=== PATIENT | male | born 1930 | race Hispanic/Latino ===

== ENCOUNTER 2017-03-10 07:45 | Inpatient (IN) | payer MEDICARE ==
[2017-03-10 08:01] VITALS: BMI 17.2
[2017-03-10] MEDS ORDERED: Albuterol-Ipratrop 3 mg / 0.5 (3 ml) UD IH STA (08:11)
[2017-03-10] MEDS ORDERED: Albuterol-Ipratrop 3 mg / 0.5 (3 ml) UD ONE (08:35)
[2017-03-10] MEDS ORDERED: Sodium Chloride 0.9% 1,000 ML ONE (08:35)
[2017-03-10 08:40] LABS: BASO % 0.4 % (0.0-2.0); EOS % 0.3 % (0.0-4.0); HEMATOCRIT 21.7 % (35.0-51.0); LYMPH # 0.6 K/uL (1.0-4.3); LYMPH % 14.3 % (20.0-40.0); MEAN CORPUSCULAR HEMOGLOBIN 30.5 pg (27.0-31.0); MEAN CORPUSCULAR HGB CONC 32.5 g/dL (33.0-37.0); MEAN PLATELET VOLUME 9.3 fL (7.2-11.7); MONO # 0.5 K/uL (0.0-0.8); NRBC % 0.1 % (0.0-2.0); RED CELL DISTRIBUTION WIDTH 15.9 % (11.5-14.5)
[2017-03-10 08:41] LABS: MEAN CELL VOLUME 93.9 fL (80.0-94.0); WHITE BLOOD COUNT 4.3 K/uL (4.8-10.8)
[2017-03-10] MEDS: Sodium Chloride 0.9% 1,000 ML IV SCH ×2 (08:45→19:11)
[2017-03-10 08:47] LABS: CHLORIDE 101 mmol/L (98-107); POTASSIUM 3.7 mmol/L (3.6-5.2); SODIUM 140 mmol/L (132-148)
[2017-03-10 08:49] LABS: BILIRUBIN,TOTAL 0.4 mg/dL (0.2-1.3); GFR AFRICAN-AMERICAN > 60
[2017-03-10 08:50] LABS: ALB/GLOB RATIO 1.2 (1.0-2.1); ALKALINE PHOSPHATASE 73 U/L (38-126); ALT/SGPT 20 U/L (21-72); AST/SGOT 16 U/L (17-59); BLOOD UREA NITROGEN 22 mg/dL (9-20); CARBON DIOXIDE 27 mmol/L (22-30); GLUCOSE,RANDOM 103 mg/dL (75-110); TOTAL PROTEIN 6.1 g/dL (6.3-8.3)
[2017-03-10 08:51] LABS: CALCIUM 8.5 mg/dl (8.6-10.4)
[2017-03-10] MEDS ORDERED: Pantoprazole 80 MG in Sodium Chloride 0.9% 100 ML IVP SCH (09:00)
--- NOTE | 2017-03-10 09:04 | C.PDOC ---
History Of Present Illness 87 year old male with a Hx of COPD, CAD, and CABG who presents to the ER with a complaint of SOB and chest pain that began last night. Denies nausea, vomiting, or diaphoresis. Time Seen by Provider: 03/10/17 07:49 Chief Complaint (Nursing): Shortness Of Breath History Per: Patient History/Exam Limitations: no limitations Onset/Duration Of Symptoms: Hrs Current Symptoms Are (Timing): Still Present Initiating Event: Other (Not known) Current Respiratory Medications: See Home Med List Associated Symptoms: Chest Pain. denies: Fever, Chills, Sweating Recent travel outside of the [place]: No Past Medical History Reviewed: Historical Data, Nursing Documentation, Vital Signs Vital Signs: Last Vital Signs Temp 98.1 F 03/10/17 10:46 Pulse 97 H 03/10/17 12:05 Resp 13 03/10/17 12:05 BP 153/76 H 03/10/17 12:05 Pulse Ox 100 03/10/17 12:05 - Medical History PMH: Arthritis, Atrial Fibrillation, Back Problems, Benign Prostatic Hyperplasia , CHF (DENIES), COPD (DENIES), Gastritis (DENIES), HTN (DENIES) Surgical History: CABG - [facility] Procedures CONTR CEREBR ARTERIOGRAM (12/26/05) ESOPHAGOGASTRODUODENOSCOPY [EGD] W/CLOSED BIOPSY (04/15/15) INFLUENZA VACCINATION (05/01/14) VACCINATION NEC (05/01/14) Family History: States: Unknown Family Hx - Social History Hx Tobacco Use: Yes Hx Alcohol Use: No Hx Substance Use: No - Immunization History Hx Tetanus Toxoid Vaccination: No Hx Influenza Vaccination: Yes Hx Pneumococcal Vaccination: Yes Review Of Systems Constitutional: Negative for: Fever, Chills Cardiovascular: Positive for: Chest Pain Respiratory: Positive for: Shortness of Breath Gastrointestinal: Negative for: Nausea, Vomiting Neurological: Negative for: Weakness, Numbness Physical Exam - Physical Exam Appears: Non-toxic Skin: Normal Color, Warm, Dry Head: Atraumatic, Normacephalic Oral Mucosa: Moist Neck: Normal Chest: Symmetrical, No Tenderness Cardiovascular: Rhythm Regular, No Murmur Respiratory: Normal Breath Sounds, No Rales, No Rhonchi, No Wheezing Gastrointestinal/Abdominal: Soft, No Tenderness Rectal: Heme Positive, Melena Neurological/Psych: Oriented x3, Normal Speech, Normal Cognition ED Course And Treatment - Laboratory Results Result Diagrams: 03/10/17 08:36 03/10/17 08:36 Lab Interpretation: Abnormal Interpretation Of Abnormal: Hgb 7.1 ECG: Interpreted By Me ECG Rhythm: Sinus Rhythm, Nonspecific Changes ECG Interpretation: No Acute Changes Rate From EC O2 Sat by Pulse Oximetry: 100 Pulse Ox Interpretation: Normal - Radiology CXR: Interpreted by Me CXR Interpretation: Yes: No Acute Disease Progress Note: Blood work, EKG, CXR, and urinalysis ordered. Protonix, IV fluids , and nebulizer treatment administered. Treated with 1 unit PC Reassessment Condition: Unchanged - Physician Consult Information Physician Contacted: Tai Whitley Outcome Of Conversation: admit Medical Decision Making Medical Decision Making: Case discussed with Dr Meliza Whitley and agrees to admit requests Unit PC Disposition Discussed With .: Tai Whitley Doctor Will See Patient In The: Hospital - Disposition Disposition: HOSPITALIZED Disposition Time: 09:10 Condition: STABLE - POA Present On Arrival: None - Clinical Impression Clinical Impression: Dyspnea, GI bleeding, Anemia - Scribe Statement The provider has reviewed the documentation as recorded by the Scribroman Wharton All medical record entries made by the Scribe were at my direction and personally dictated by me. I have reviewed the chart and agree that the record accurately reflects my personal performance of the history, physical exam, medical decision making, and the department course for this patient. I have also personally directed, reviewed, and agree with the discharge instructions and disposition. Decision To Admit - Pt Status Changed To: Hospital Disposition Of: Inpatient - Admit Certification Admit to Inpatient:: After my assessment, the patient will require hospitalization for at least two midnights. This is because of the severity of symptoms shown, intensity of services needed, and/or the medical risk in this patient being treated as an outpatient. - InPatient: Physician Admission Certification: I certify that this patient requires 2 or more midnights of care for the following reason:: GI Bleeding. Anemia - . Bed Request Type: Telemetry Admitting Physician: Tai Whitley Patient Diagnosis: Dyspnea, GI bleeding, Anemia
[2017-03-10] MEDS: Pantoprazole 80 MG in Sodium Chloride 0.9% 100 ML IVPB SCH ×2 (09:33→19:46)
[2017-03-10] MEDS ORDERED: Sodium Chloride 0.9% 1,000 ML IV ONE (10:38)
--- NOTE | 2017-03-10 11:36 | CP.PCM.CON ---
History of Present Illness - History of Present Illness History of Present Illness: Covering Dr Lr CC: Anemia HPI: GI consult requested for this 87 year old man, who presented to the ER with fatigue and dyspnea on exertion. He was found to have normocytic anemia and so GI consult was requested. The patient is currently receiving PRBCs transfused. Patient admits to melena over the past 9 days. He does have a longstanding history of anemia and in fact is on oral Iron supplementation on a chronic basis. the patient is a poor historian, but my review of records reveals he had similar anemia in 2015 and underwent EGD twice in 2015, both times suggesting esophageal stricture and gastritis, with normal biopsies, and stool OB negative. The patient gets constipated at times but without definite change in bowel habits, and he does not recall ever having a Colonoscopy. he also feels occaional dysphagia to solids when " I eat too fast" and it resolves by drinking liquids. He takes daily Aspirin and anelgesics. Patient currently in ER waiting for telemetry unit bed. Review of Systems - Constitutional Constitutional: Fatigue, Weight Loss. absent: Fever - EENT Eyes: absent: Change in Vision Ears: absent: Decreased Hearing Nose/Mouth/Throat: Dysphagia. absent: Nasal Discharge - Cardiovascular Cardiovascular: Dyspnea on Exertion. absent: Chest Pain, Chest Pain at Rest - Respiratory Respiratory: Dyspnea on Exertion - Gastrointestinal Gastrointestinal: Constipation, Dysphagia, Melena. absent: Abdominal Pain, Change in Bowel Habits, Dyspepsia, Early Satiety - Genitourinary Genitourinary: Difficulty Urinating - Musculoskeletal Musculoskeletal: Arthralgias - Integumentary Integumentary: absent: Bleeding Lesions - Neurological Neurological: Abnormal Hearing, Memory Loss - Psychiatric Psychiatric: absent: Anxiety, Behavioral Changes - Endocrine Endocrine: Fatigue - Hematologic/Lymphatic Hematologic: absent: Easy Bleeding Past Patient History - Infectious Disease Hx of Infectious Diseases: None - Past Medical History & Family History Past Medical History?: Yes - Past Social History Smoking Status: Former Smoker Alcohol: None - CARDIAC Hx Atrial Fibrillation: Yes Hx Congestive Heart Failure: Yes (DENIES) Hx Hypertension: Yes (DENIES) - PULMONARY Hx Chronic Obstructive Pulmonary Disease (COPD): Yes (DENIES) - NEUROLOGICAL Hx Neurological Disorder: No - HEENT Hx HEENT Problems: No - RENAL Hx Chronic Kidney Disease: No - ENDOCRINE/METABOLIC Hx Endocrine Disorders: No - HEMATOLOGICAL/ONCOLOGICAL Hx Blood Disorders: No Hx Blood Transfusions: No - INTEGUMENTARY Hx Dermatological Problems: No - MUSCULOSKELETAL/RHEUMATOLOGICAL Hx Arthritis: Yes - GASTROINTESTINAL Hx Gastritis: Yes (DENIES) - GENITOURINARY/GYNECOLOGICAL Hx Genitourinary Disorders: Yes Hx Prostate Problems: Yes (BPH) - PSYCHIATRIC Hx Substance Use: No - SURGICAL HISTORY Hx Coronary Artery Bypass Graft: Yes - ANESTHESIA Hx Anesthesia: Yes Hx Anesthesia Reactions: No Hx Malignant Hyperthermia: No Meds Allergies/Adverse Reactions: Allergies Allergy/AdvReac Type Severity Reaction Status Date / Time No Known Allergies Allergy Verified 08/24/16 18:02 - Medications Medications: Current Medications Ferrous Sulfate (Feosol) 325 mg PO DAILY DARIELA Sodium Chloride (Sodium Chloride 0.9%) 1,000 mls @ 100 mls/hr IV .Q10H DARIELA Last Admin: 03/10/17 08:45 Dose: 100 mls/hr Pantoprazole Sodium 80 mg/ (Sodium Chloride) 100 mls @ 10 mls/hr IVPB .Q10H DARIELA PRN Reason: 8 MG/HR Last Admin: 03/10/17 09:33 Dose: 10 mls/hr Sodium Chloride (Sodium Chloride 0.9%) 1,000 mls @ 50 mls/hr IV .Q20H ONE Stop: 03/11/17 06:37 Last Admin: 03/10/17 11:03 Dose: 50 mls/hr Physical Exam - Constitutional Appears: Chronically Ill - Head Exam Head Exam: ATRAUMATIC, NORMOCEPHALIC - Eye Exam Eye Exam: absent: Scleral icterus - ENT Exam ENT Exam: Normal Exam - Neck Exam Neck exam: Positive for: Normal Inspection. Negative for: Thyromegaly - Respiratory Exam Respiratory Exam: Decreased Breath Sounds, NORMAL BREATHING PATTERN - Cardiovascular Exam Cardiovascular Exam: REGULAR RHYTHM, Systolic Murmur. absent: Tachycardia - GI/Abdominal Exam GI & Abdominal Exam: Soft. absent: Distended, Guarding, Mass, Organomegaly, Tenderness - Rectal Exam Rectal Exam: Deferred - Extremities Exam Extremities exam: Positive for: normal inspection - Back Exam Back exam: NORMAL INSPECTION - Neurological Exam Neurological exam: Alert, Oriented x3 - Psychiatric Exam Psychiatric exam: Normal Mood - Skin Skin Exam: Normal Color Results - Vital Signs Recent Vital Signs: Last Vital Signs Temp 98.1 F 03/10/17 10:46 Pulse 100 H 03/10/17 10:46 Resp 15 08/12/17 10:46 BP 120/66 03/10/17 10:46 Pulse Ox 100 03/10/17 10:46 - Labs Result Diagrams: 03/10/17 08:36 03/10/17 08:36 Assessment & Plan (1) Anemia Assessment and Plan: Acute on chronic normocytic anemia. Anemia of chronic disease with acute GI bleed component (melena) rec: Check stool OB Status: Acute (2) Dyspnea Assessment and Plan: Multifactorial: Pulm disease and anemia Status: Acute (3) GI bleeding Assessment and Plan: Melena. Likely upper GI source. Chronic aspirin use, and ?h/ esophageal stricture. Rec: PPI. EGD after stabilixation. Monitor Hgb. Will stop oral Iron as this interferes with endoscopic visualization Status: Acute - Date & Time Date: 03/10/17 Time: 11:43
[2017-03-10 12:06] LABS: RBC URINE 1 /hpf (0-3); URINE BILIRUBIN NEGATIVE (NEGATIVE); URINE BLOOD NEGATIVE (NEGATIVE); URINE COLOR Yellow (YELLOW); URINE GLUCOSE (UA) NORMAL (Normal); URINE KETONE TRACE mg/dL (NEGATIVE); URINE LEUKOCYTE ESTERASE NEG Leu/uL (Negative); URINE PROTEIN NEGATIVE (NEGATIVE); URINE UROBILINOGEN NORMAL mg/dL (0.2-1.0); WBC URINE 1 /hpf (0-5)
--- NOTE | 2017-03-10 14:08 | RAD ---
HISTORY: SOB COMPARISON: Comparison is made to 09/04/2016 TECHNIQUE: Chest PA and lateral FINDINGS: LUNGS: Hyperinflation of the lungs is again noted suggestive of COPD. No evidence of new infiltration O consolidation in the lungs. Pleural thickening seen at the lung apices. PLEURA: No significant pleural effusion identified. No pneumothorax apparent. CARDIOVASCULAR: Normal. OSSEOUS STRUCTURES: No significant abnormalities. VISUALIZED UPPER ABDOMEN: Normal. OTHER FINDINGS: None. IMPRESSION: Moderate emphysematous changes. No evidence of new infiltrate or consolidation in the lungs.
[2017-03-11] MEDS ORDERED: Albuterol-Ipratrop 3 mg / 0.5 (3 ml) UD INH STA (04:45)
[2017-03-11] MEDS: Pantoprazole 80 MG in Sodium Chloride 0.9% 100 ML IVPB SCH ×2 (07:15→16:58)
[2017-03-11] MEDS: Sodium Chloride 0.9% 1,000 ML IV SCH ×2 (07:15→19:46)
--- NOTE | 2017-03-11 08:51 | CP.PCM.PN ---
Subjective - Date & Time of Evaluation Date of Evaluation: 03/11/17 Time of Evaluation: 08:48 - Subjective Subjective: Patient complains of shortness of breath, is awaiting a nebulizer treatment. He denies having nausea, vomiting, abdominal pain. He has not had a bowel movement so far today. Objective - Vital Signs/Intake and Output Vital Signs (last 24 hours): Temp Pulse Resp BP Pulse Ox 99.1 F 93 H 20 157/81 H 97 03/10/17 23:05 03/10/17 23:05 03/10/17 23:05 03/10/17 23:05 03/10/17 23:05 Intake and Output: 03/11/17 03/11/17 06:59 18:59 Output Total 151 Balance -151 - Medications Medications: Current Medications Sodium Chloride (Sodium Chloride 0.9%) 1,000 mls @ 100 mls/hr IV .Q10H DARIELA Last Admin: 03/11/17 07:15 Dose: 100 mls/hr Pantoprazole Sodium 80 mg/ (Sodium Chloride) 100 mls @ 10 mls/hr IVPB .Q10H DARIELA PRN Reason: 8 MG/HR Last Admin: 03/11/17 07:15 Dose: 10 mls/hr - Constitutional Appears: In Acute Distress - Head Exam Head Exam: ATRAUMATIC, NORMOCEPHALIC - Eye Exam Eye Exam: EOMI, PERRL - Neck Exam Neck Exam: absent: Lymphadenopathy, Thyromegaly - Respiratory Exam Respiratory Exam: Prolonged Expiratory Phase, NORMAL BREATHING PATTERN. absent : Rales, Rhonchi, Wheezes - Cardiovascular Exam Cardiovascular Exam: REGULAR RHYTHM, +S1. absent: Gallop, Rubs, Murmur - GI/Abdominal Exam GI & Abdominal Exam: Soft, Normal Bowel Sounds. absent: Tenderness, Mass, Organomegaly - Rectal Exam Rectal Exam: Deferred - Extremities Exam Extremities Exam: absent: Calf Tenderness, Pedal Edema Assessment and Plan (1) Melena Assessment & Plan: Patient was admitted with melena and anemia, HGB 7.1. The repeat CBC from this morning is still pending. Will schedule EGD for tomorrow, provided the respiratory status is stable. Status: Acute
[2017-03-11] MEDS: Albuterol-Ipratrop 3 mg / 0.5 (3 ml) UD INH SCH ×2 (11:45→19:57)
[2017-03-11 22:44] LABS: BASO % 0.1 % (0.0-2.0); HEMATOCRIT 27.2 % (35.0-51.0); LYMPH # 1.1 K/uL (1.0-4.3); LYMPH % 11.4 % (20.0-40.0); MEAN CELL VOLUME 91.3 fL (80.0-94.0); MEAN CORPUSCULAR HEMOGLOBIN 29.4 pg (27.0-31.0); MEAN CORPUSCULAR HGB CONC 32.2 g/dL (33.0-37.0); MEAN PLATELET VOLUME 9.6 fL (7.2-11.7); MONO # 1.7 K/uL (0.0-0.8); MONO % 17.5 % (0.0-10.0); NRBC % 0.1 % (0.0-2.0); RED CELL DISTRIBUTION WIDTH 17.5 % (11.5-14.5); WHITE BLOOD COUNT 9.9 K/uL (4.8-10.8)
[2017-03-12] MEDS: Sodium Chloride 0.9% 1,000 ML IV SCH ×3 (00:30→10:40)
[2017-03-12] MEDS: Pantoprazole 80 MG in Sodium Chloride 0.9% 100 ML IVPB SCH ×3 (01:30→21:24)
[2017-03-12] MEDS: Albuterol-Ipratrop 3 mg / 0.5 (3 ml) UD INH SCH ×3 (07:34→19:47)
[2017-03-12 08:10] LABS: INR 1.4
--- NOTE | 2017-03-12 08:10 | HP ---
HISTORY OF PRESENT ILLNESS: This is an 87-year-old gentleman who was brought in with a history of shortness of breath. The patient has a history of COPD, CAD and CABG. He was complaining of shortness of breath and chest pain, came to the emergency room and was also found to be anemic with hemoglobin of 7.1 gram. Stool for occult blood was positive. He has been noticing dark colored stool for about 2 weeks. The patient has history of known CAD, previous CABG more than 20 years ago, has been admitted in the past for atypical chest pain. He has been advised to stay on baby aspirin, simvastatin and small dose of MATTHEW inhibitors, but he has refused to take any medication, has been poor compliance. He did not want to take the medicine. Family is well aware of it. He also has history of severe back problems and multiple joint pains, in the care of pain management and has been on Percocet and another multiple medications for the pain. PERSONAL HISTORY: Smoke cigars. ALLERGIES: DENIED. FAMILY HISTORY: His one son has history of coronary artery disease in his 50s, cardiac CABG and has an ICD. PAST MEDICAL HISTORY: History of benign prostatic hypertrophy, gastritis and CABG. REVIEW OF SYSTEMS: Generalized weakness is noted. No fever, no chills, no visual disturbances, no cough, no hemoptysis. Chest pain is noted, which occurs at anytime. The patient has mild shortness of breath, no wheezing. Denies any hematemesis, but has noticed dark colored stool, no abdominal pain, multiple joint pains. No TIAs. No CVAs. Admitted in the past for syncopal episode. Also, he has carotid disease. Frequency of urination is noted. No history of depression. PHYSICAL EXAMINATION: GENERAL: Shows elderly white male, who is conscious, alert and well oriented, in no distress. VITAL SIGNS: Height 5 feet and 10 inches, weighs 120 pounds. His blood pressure is 140/80, heart rate of 106, respiratory rate of 20, temperature of 98.1 and O2 saturation is 99% on 2 liters O2 cannula. HEENT: Head is normocephalic. Eyes, no pallor, no icterus. Mouth, absence of teeth. NECK: Supple. No carotid bruits. LUNGS: Shows few basal rales on the right side. HEART: PMI is not localized. S1 and S2 is distant and tachycardic. No definite gallops or murmurs can be appreciated. Healed surgical scar of previous surgery is noted in the midsternal line. ABDOMEN: Soft and nontender. EXTREMITIES: No cyanosis, clubbing or edema. Distal pulses are intact. No focal sign. LABORATORY DATA: Hemoglobin was 7.1. Two sets of troponins were mildly elevated to 0.14 and 0.18. LFTs were normal. His potassium is 3.7, BUN is 22 and creatinine is 0.9. ASSESSMENT: This is an 87-year-old gentleman with history of severe anemia probably related to the pain medication and gastritis. He has been documented to have colonoscopy as well as upper endoscopy in the past, but he has refused. PLAN: At this point to GI consult with Dr. Lr, transfusion. No aspirin or pain medications. Protonix. stabilization and once the cardiac evaluation is completed and LV function is stable, will need upper and lower scopy. Tai Whitley MD
[2017-03-12 08:11] LABS: FUNCTIONING PLTS 82 K/uL; PLT BASE COUNT 148 K/uL; PLT(ADP) 66 K/uL
[2017-03-12 08:18] LABS: CHLORIDE 103 mmol/L (98-107); POTASSIUM 3.7 mmol/L (3.6-5.2); SODIUM 137 mmol/L (132-148)
[2017-03-12 08:21] LABS: ALB/GLOB RATIO 1.1 (1.0-2.1); ALKALINE PHOSPHATASE 69 U/L (38-126); ALT/SGPT 25 U/L (21-72); AST/SGOT 28 U/L (17-59); BILIRUBIN,TOTAL 1.1 mg/dL (0.2-1.3); BLOOD UREA NITROGEN 12 mg/dL (9-20); CALCIUM 8.2 mg/dl (8.6-10.4); CARBON DIOXIDE 23 mmol/L (22-30); GFR AFRICAN-AMERICAN > 60; GLUCOSE,RANDOM 99 mg/dL (75-110); TOTAL PROTEIN 5.7 g/dL (6.3-8.3)
[2017-03-12 08:22] LABS: BASO % 0.2 % (0.0-2.0); HEMATOCRIT 27.1 % (35.0-51.0); LYMPH # 0.8 K/uL (1.0-4.3); LYMPH % 8.3 % (20.0-40.0); MEAN CELL VOLUME 90.8 fL (80.0-94.0); MEAN CORPUSCULAR HEMOGLOBIN 29.5 pg (27.0-31.0); MEAN CORPUSCULAR HGB CONC 32.5 g/dL (33.0-37.0); MEAN PLATELET VOLUME 9.9 fL (7.2-11.7); MONO # 1.6 K/uL (0.0-0.8); MONO % 16.3 % (0.0-10.0); PLATELET COUNT 146 K/uL (130-400); RED CELL DISTRIBUTION WIDTH 17.7 % (11.5-14.5)
[2017-03-12 09:14] LABS: TOTAL CELLS COUNTED 100
[2017-03-12 09:20] LABS: MYELOCYTE 1 % (0-0); NEUTROPHIL 82 % (50-75)
--- NOTE | 2017-03-12 10:38 | CP.PCM.PN ---
Subjective - Date & Time of Evaluation Date of Evaluation: 03/12/17 Time of Evaluation: 10:35 - Subjective Subjective: Patient states that his breathing is improving. He denies having cough, chest pain, nausea, vomiting. He has mild lower abdominal discomfort which he describes as a steady toothache. He had two soft bowel movements overnight without joy blood. Objective - Vital Signs/Intake and Output Vital Signs (last 24 hours): Temp Pulse Resp BP Pulse Ox 98.4 F 119 H 20 144/84 100 03/12/17 08:00 03/12/17 08:00 03/12/17 08:00 03/12/17 08:00 03/12/17 08:00 Intake and Output: 03/12/17 03/12/17 06:59 18:59 Intake Total 2260 Output Total 650 Balance 1610 - Medications Medications: Current Medications Albuterol/Ipratropium (Duoneb 3 Mg/0.5 Mg (3 Ml) Ud) 3 ml INH RQ6 DARIELA Last Admin: 03/12/17 07:34 Dose: 3 ml Sodium Chloride (Sodium Chloride 0.9%) 1,000 mls @ 100 mls/hr IV .Q10H DARIELA Last Admin: 03/12/17 06:41 Dose: 100 mls/hr Pantoprazole Sodium 80 mg/ (Sodium Chloride) 100 mls @ 10 mls/hr IVPB .Q10H DARIELA PRN Reason: 8 MG/HR Last Admin: 03/12/17 01:30 Dose: Not Given Losartan Potassium (Cozaar) 25 mg PO DAILY DARIELA Last Admin: 03/12/17 09:36 Dose: 25 mg - Labs Labs: 03/12/17 07:56 03/12/17 07:56 PT 16.0 SECONDS (9.7-12.2) H 03/12/17 07:56 INR 1.4 03/12/17 07:56 - Constitutional Appears: No Acute Distress - Head Exam Head Exam: ATRAUMATIC, NORMOCEPHALIC - Eye Exam Eye Exam: EOMI, PERRL - Neck Exam Neck Exam: absent: Lymphadenopathy, Thyromegaly - Respiratory Exam Respiratory Exam: NORMAL BREATHING PATTERN. absent: Rales, Rhonchi, Wheezes - GI/Abdominal Exam GI & Abdominal Exam: Soft, Normal Bowel Sounds. absent: Tenderness, Mass, Organomegaly - Rectal Exam Rectal Exam: Deferred - Extremities Exam Extremities Exam: absent: Calf Tenderness, Pedal Edema Assessment and Plan (1) Melena Assessment & Plan: Hemoglobin remains stable at 8.8. He denies having rectal bleeding. With anemia and positive test for fecal occult blood, he should undergo colonoscopy and EGD. However, the TN1 values are slightly elevated at 0.145, repeat 0.181, and the BNP is markedly elevated at 9480. We will schedule the endoscopic procedures when he is stable and cleared by cardiology. Status: Acute
--- NOTE | 2017-03-12 14:29 | CP.PCM.PN ---
Subjective - Date & Time of Evaluation Date of Evaluation: 03/12/17 Time of Evaluation: 14:24 - Subjective Subjective: weak.labs noted. Objective - Vital Signs/Intake and Output Vital Signs (last 24 hours): Temp Pulse Resp BP Pulse Ox 98.4 F 104 H 20 144/84 100 03/12/17 08:00 03/12/17 13:28 03/12/17 08:00 03/12/17 08:00 03/12/17 08:00 Intake and Output: 03/12/17 03/12/17 06:59 18:59 Intake Total 2260 Output Total 650 Balance 1610 - Medications Medications: Current Medications Albuterol/Ipratropium (Duoneb 3 Mg/0.5 Mg (3 Ml) Ud) 3 ml INH RQ6 DARIELA Last Admin: 03/12/17 12:59 Dose: 3 ml Pantoprazole Sodium 80 mg/ (Sodium Chloride) 100 mls @ 10 mls/hr IVPB .Q10H DARIELA PRN Reason: 8 MG/HR Last Admin: 03/12/17 10:40 Dose: 10 mls/hr Losartan Potassium (Cozaar) 25 mg PO DAILY DARIELA Last Admin: 03/12/17 09:36 Dose: 25 mg - Labs Labs: 03/12/17 07:56 03/12/17 07:56 PT 16.0 SECONDS (9.7-12.2) H 03/12/17 07:56 INR 1.4 03/12/17 07:56 - Constitutional Appears: Chronically Ill - Head Exam Head Exam: NORMAL INSPECTION - Eye Exam Eye Exam: Normal appearance - Respiratory Exam Respiratory Exam: Rales - Cardiovascular Exam Cardiovascular Exam: Tachycardia, Murmur - GI/Abdominal Exam GI & Abdominal Exam: Soft - Extremities Exam Extremities Exam: absent: Pedal Edema - Neurological Exam Neurological Exam: Alert, Oriented x3 Assessment and Plan - Assessment and Plan (Free Text) Assessment: labs noted.ekg had sinus tach.2 sets of troponins are elevated. non st elevatation mi. echo reviewed by me. diss with son,daughter in law.pt has living will & wants dnr.
--- NOTE | 2017-03-12 22:16 | CARD ---
APPROVED REPORT EXAM: Two-dimensional and M-mode echocardiogram with Doppler and color Doppler. Other Information Quality : GoodRhythm : NSR INDICATION Chest Pain Syncope COPD RISK FACTORS Hypertension 2D DIMENSIONS IVSd0.9 (0.7-1.1cm)Aortic Root (2D)3.2 (2.0-3.7cm) LVDd5.8 (3.9-5.9cm)LVOT Diameter2.1 (1.8-2.4cm) PWd0.8 (0.7-1.1cm) M-Mode DIMENSIONS Left Atrium (MM)2.95 (2.5-4.0cm)Aortic Root3.54 (2.2-3.7cm) Aortic Cusp Exc.0.70 (1.5-2.0cm) Aortic Valve AoV Peak Tqkmbuzg940.3cm/sAoV VTI44.8cmAO Peak GR.28mmHg LVOT Peak Mgjuwpwz72.9cm/sLVOT VTI13.48cmAO Mean GR.16mmHg QUANG (VMAX)0.69up6JRX (VTI)1.72hw6OQ P 1/2 Yahl035zn Mitral Valve MV E Bgpvtmnq886.2cm/sMV A Uobnsslt95.1cm/sE/A ratio1.2 TDI E/Lateral E'0.0E/Medial E'0.0 Tricuspid Valve TR Peak Effhbbvv080ix/sTR Peak Gr.66tqEkDAUK38dpEf LEFT VENTRICLE The Left Ventricle is mildly dilated. There is normal left ventricular wall thickness. 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 There is global hypokinesis of the left ventricle. The left ventricular diastolic function is normal. No left ventricle thrombus noted on this study. RIGHT VENTRICLE The right ventricle is normal size. The right ventricular systolic function is normal. ATRIA The left atrium is moderately dilated on 2D. The right atrium is mildly dilated. AORTIC VALVE The aortic valve is moderately calcified. No aortic regurgitation is present. There is moderate to severe valvular aortic stenosis. Calculated aortic valve area is 0.8 cm2 with maximum pressure gradient of 28 mmHg and mean pressure gradient of 16 mmHg. Cannot exclude aortic valvular vegetation. MITRAL VALVE The mitral valve is moderately thickened. Mitral annular calcification is moderate. There is no evidence of mitral valve prolapse. There is no mitral valve stenosis. Mitral regurgitation is moderate to severe. TRICUSPID VALVE The tricuspid valve is normal in structure. There is moderate to severe tricuspid regurgitation. Right ventricular systolic pressure is estimated at 50-60 mmHg. There is moderate pulmonary hypertension. There is no tricuspid valve prolapse or vegetation. There is no tricuspid valve stenosis. PULMONIC VALVE The pulmonic valve is not well visualized. There is mild to moderate pulmonic valvular regurgitation. GREAT VESSELS The aortic root is normal in size. The IVC collapses <50% with inspiration. PERICARDIAL EFFUSION There is no pericardial effusion. There is no pleural effusion. <Conclusion> The Left Ventricle is mildly dilated. 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 There is global hypokinesis of the left ventricle. The left ventricular diastolic function is normal. The right ventricle is normal size. The right ventricular systolic function is normal. The left atrium is moderately dilated. The right atrium is mildly dilated. Mitral regurgitation is moderate to severe. There is moderate to severe tricuspid regurgitation. There is moderate pulmonary hypertension. There is mild to moderate pulmonic valvular regurgitation.
[2017-03-13] MEDS: Albuterol-Ipratrop 3 mg / 0.5 (3 ml) UD INH SCH ×4 (02:23→19:00)
[2017-03-13 07:08] LABS: BASO % 0.4 % (0.0-2.0); EOS % 0.2 % (0.0-4.0); HEMATOCRIT 27.2 % (35.0-51.0); LYMPH % 11.8 % (20.0-40.0); MEAN CELL VOLUME 91.4 fL (80.0-94.0); MEAN CORPUSCULAR HEMOGLOBIN 29.6 pg (27.0-31.0); MEAN CORPUSCULAR HGB CONC 32.4 g/dL (33.0-37.0); MEAN PLATELET VOLUME 9.8 fL (7.2-11.7); MONO # 1.3 K/uL (0.0-0.8); MONO % 15.6 % (0.0-10.0); RED CELL DISTRIBUTION WIDTH 17.7 % (11.5-14.5); WHITE BLOOD COUNT 8.4 K/uL (4.8-10.8)
[2017-03-13 07:29] LABS: CHLORIDE 100 mmol/L (98-107); POTASSIUM 3.7 mmol/L (3.6-5.2); SODIUM 138 mmol/L (132-148)
[2017-03-13 07:32] LABS: ALB/GLOB RATIO 1.1 (1.0-2.1); ALKALINE PHOSPHATASE 62 U/L (38-126); ALT/SGPT 26 U/L (21-72); BLOOD UREA NITROGEN 18 mg/dL (9-20); GLUCOSE,RANDOM 104 mg/dL (75-110); TOTAL PROTEIN 5.5 g/dL (6.3-8.3)
[2017-03-13 07:33] LABS: CALCIUM 8.2 mg/dl (8.6-10.4)
[2017-03-13 07:43] LABS: AST/SGOT 24 U/L (17-59); BILIRUBIN,TOTAL 0.9 mg/dL (0.2-1.3); CARBON DIOXIDE 25 mmol/L (22-30); GFR AFRICAN-AMERICAN > 60
[2017-03-13] MEDS: Pantoprazole 80 MG in Sodium Chloride 0.9% 100 ML IVPB SCH ×2 (08:00→21:36)
--- NOTE | 2017-03-13 13:30 | CP.PCM.PN ---
Subjective - Date & Time of Evaluation Date of Evaluation: 03/13/17 Time of Evaluation: 13:29 - Subjective Subjective: better.less sob. Objective - Vital Signs/Intake and Output Vital Signs (last 24 hours): Temp Pulse Resp BP Pulse Ox 99.0 F 99 H 20 111/72 100 03/13/17 08:49 03/13/17 08:49 03/13/17 08:49 03/13/17 08:49 03/13/17 08:49 Intake and Output: 03/13/17 03/13/17 06:59 18:59 Intake Total 320 Output Total 500 Balance -180 - Medications Medications: Current Medications Albuterol/Ipratropium (Duoneb 3 Mg/0.5 Mg (3 Ml) Ud) 3 ml INH RQ6 [facility] Last Admin: 03/13/17 13:21 Dose: 3 ml Ferrous Sulfate (Feosol) 325 mg PO DAILY [facility] Furosemide (Lasix) 20 mg PO DAILY [facility] Pantoprazole Sodium 80 mg/ (Sodium Chloride) 100 mls @ 10 mls/hr IVPB .Q10H [facility] PRN Reason: 8 MG/HR Last Admin: 03/12/17 21:24 Dose: 10 mls/hr Losartan Potassium (Cozaar) 25 mg PO DAILY [facility] Last Admin: 03/12/17 09:36 Dose: 25 mg Tramadol HCl (Ultram) 50 mg PO TID PRN PRN Reason: Pain, moderate (4-7) Last Admin: 03/12/17 21:39 Dose: 50 mg - Labs Labs: 03/13/17 07:00 03/13/17 07:00 PT 16.0 SECONDS (9.7-12.2) H 03/12/17 07:56 INR 1.4 03/12/17 07:56 - Constitutional Appears: No Acute Distress - Eye Exam Eye Exam: Normal appearance - Respiratory Exam Respiratory Exam: Clear to Ausculation Bilateral - Cardiovascular Exam Cardiovascular Exam: REGULAR RHYTHM - GI/Abdominal Exam GI & Abdominal Exam: Soft - Extremities Exam Extremities Exam: absent: Pedal Edema - Neurological Exam Neurological Exam: Alert, Oriented x3 Assessment and Plan - Assessment and Plan (Free Text) Assessment: chf,better.hb 8.5,stable. will start po lasix & feosol. refuses all w/u & further stay.
[2017-03-14] MEDS: Albuterol-Ipratrop 3 mg / 0.5 (3 ml) UD INH SCH ×4 (01:47→19:35)
[2017-03-14] MEDS: Pantoprazole 80 MG in Sodium Chloride 0.9% 100 ML IVPB SCH ×4 (03:30→16:00)
[2017-03-14 07:36] LABS: BASO % 0.3 % (0.0-2.0); EOS # 0.1 K/uL (0.0-0.7); EOS % 1.1 % (0.0-4.0); HEMATOCRIT 28.7 % (35.0-51.0); LYMPH % 14.8 % (20.0-40.0); MEAN CELL VOLUME 90.6 fL (80.0-94.0); MEAN CORPUSCULAR HEMOGLOBIN 29.1 pg (27.0-31.0); MEAN CORPUSCULAR HGB CONC 32.1 g/dL (33.0-37.0); MEAN PLATELET VOLUME 10.2 fL (7.2-11.7); MONO # 1.1 K/uL (0.0-0.8); MONO % 15.6 % (0.0-10.0); RED CELL DISTRIBUTION WIDTH 16.9 % (11.5-14.5); WHITE BLOOD COUNT 7.1 K/uL (4.8-10.8)
[2017-03-14 07:45] LABS: CHLORIDE 99 mmol/L (98-107); SODIUM 136 mmol/L (132-148)
[2017-03-14 07:48] LABS: ALKALINE PHOSPHATASE 65 U/L (38-126); ALT/SGPT 31 U/L (21-72); AST/SGOT 31 U/L (17-59); BILIRUBIN,TOTAL 0.9 mg/dL (0.2-1.3); BLOOD UREA NITROGEN 16 mg/dL (9-20); CARBON DIOXIDE 28 mmol/L (22-30); GFR AFRICAN-AMERICAN > 60; GLUCOSE,RANDOM 107 mg/dL (75-110); TOTAL PROTEIN 5.7 g/dL (6.3-8.3)
[2017-03-14 07:49] LABS: CALCIUM 8.1 mg/dl (8.6-10.4)
--- NOTE | 2017-03-14 13:44 | CP.PCM.PN ---
Subjective - Date & Time of Evaluation Date of Evaluation: 03/14/17 Time of Evaluation: 13:43 - Subjective Subjective: less sob Objective - Vital Signs/Intake and Output Vital Signs (last 24 hours): Temp Pulse Resp BP Pulse Ox 98.4 F 91 H 20 105/59 L 97 03/14/17 09:10 03/14/17 10:53 03/14/17 09:10 03/14/17 10:57 03/14/17 09:10 Intake and Output: 03/14/17 03/14/17 06:59 18:59 Intake Total 580 Output Total 1000 Balance -420 - Medications Medications: Current Medications Albuterol/Ipratropium (Duoneb 3 Mg/0.5 Mg (3 Ml) Ud) 3 ml INH RQ6 [facility] Last Admin: 03/14/17 13:07 Dose: 3 ml Ferrous Sulfate (Feosol) 325 mg PO DAILY [facility] Last Admin: 03/14/17 10:57 Dose: 325 mg Furosemide (Lasix) 20 mg PO DAILY [facility] Last Admin: 03/14/17 10:57 Dose: 20 mg Pantoprazole Sodium 80 mg/ (Sodium Chloride) 100 mls @ 10 mls/hr IVPB .Q10H [facility] PRN Reason: 8 MG/HR Last Admin: 03/14/17 09:53 Dose: 10 mls/hr Losartan Potassium (Cozaar) 25 mg PO DAILY [facility] Last Admin: 03/14/17 10:57 Dose: 25 mg Tramadol HCl (Ultram) 50 mg PO TID PRN PRN Reason: Pain, moderate (4-7) Last Admin: 03/12/17 21:39 Dose: 50 mg - Labs Labs: 03/14/17 07:21 03/14/17 07:21 PT 16.0 SECONDS (9.7-12.2) H 03/12/17 07:56 INR 1.4 03/12/17 07:56 - Constitutional Appears: Chronically Ill - ENT Exam ENT Exam: Mucous Membranes Moist - Respiratory Exam Respiratory Exam: Clear to Ausculation Bilateral - Cardiovascular Exam Cardiovascular Exam: REGULAR RHYTHM, Murmur - GI/Abdominal Exam GI & Abdominal Exam: Soft - Extremities Exam Extremities Exam: absent: Pedal Edema - Neurological Exam Neurological Exam: Alert, Oriented x3 Assessment and Plan - Assessment and Plan (Free Text) Assessment: chf,nstemi,gi blled d/c to rehab in am
--- NOTE | 2017-03-14 16:13 | CP.PCM.PN ---
Subjective - Date & Time of Evaluation Date of Evaluation: 03/14/17 Time of Evaluation: 16:12 - Subjective Subjective: Patient denies having nausea, vomiting, abdominal pain. He has not had a bowel movement today. Objective - Vital Signs/Intake and Output Vital Signs (last 24 hours): Temp Pulse Resp BP Pulse Ox 97.9 F 69 20 112/61 100 03/14/17 15:41 03/14/17 15:41 03/14/17 15:41 03/14/17 15:41 03/14/17 15:41 Intake and Output: 03/14/17 03/14/17 06:59 18:59 Intake Total 580 1200 Output Total 1000 900 Balance -420 300 - Medications Medications: Current Medications Albuterol/Ipratropium (Duoneb 3 Mg/0.5 Mg (3 Ml) Ud) 3 ml INH RQ6 [facility] Last Admin: 03/14/17 13:07 Dose: 3 ml Ferrous Sulfate (Feosol) 325 mg PO DAILY [facility] Last Admin: 03/14/17 10:57 Dose: 325 mg Furosemide (Lasix) 20 mg PO DAILY [facility] Last Admin: 03/14/17 10:57 Dose: 20 mg Pantoprazole Sodium 80 mg/ (Sodium Chloride) 100 mls @ 10 mls/hr IVPB .Q10H [facility] PRN Reason: 8 MG/HR Last Admin: 03/14/17 13:30 Dose: Not Given Losartan Potassium (Cozaar) 25 mg PO DAILY [facility] Last Admin: 03/14/17 10:57 Dose: 25 mg Tramadol HCl (Ultram) 50 mg PO TID PRN PRN Reason: Pain, moderate (4-7) Last Admin: 03/14/17 14:30 Dose: 50 mg - Labs Labs: 03/14/17 07:21 03/14/17 07:21 PT 16.0 SECONDS (9.7-12.2) H 03/12/17 07:56 INR 1.4 03/12/17 07:56 - Constitutional Appears: No Acute Distress - Head Exam Head Exam: ATRAUMATIC, NORMOCEPHALIC - Eye Exam Eye Exam: EOMI, PERRL - Neck Exam Neck Exam: absent: Lymphadenopathy, Thyromegaly - Respiratory Exam Respiratory Exam: NORMAL BREATHING PATTERN. absent: Rales, Rhonchi, Wheezes - Cardiovascular Exam Cardiovascular Exam: REGULAR RHYTHM, +S1, +S2. absent: Gallop, Rubs, Murmur - GI/Abdominal Exam GI & Abdominal Exam: Soft, Normal Bowel Sounds. absent: Tenderness, Mass, Organomegaly - Rectal Exam Rectal Exam: Deferred - Extremities Exam Extremities Exam: absent: Calf Tenderness, Pedal Edema Assessment and Plan (1) Melena Assessment & Plan: Patient has a history of melena, anemia, and positive fecal occult blood. The HGB has been stable for the past three days, and, at 9.2, is slightly higher [place]. [place] [address]. Plan is still to pursue an endoscopic work up, including EGD and colonoscopy, when he is clinically stable and cleared by cardiology. This can easily be arranged as an outpatient. Status: Acute
[2017-03-15] MEDS: Pantoprazole 80 MG in Sodium Chloride 0.9% 100 ML IVPB SCH ×2 (00:46→11:28)
[2017-03-15] MEDS: Albuterol-Ipratrop 3 mg / 0.5 (3 ml) UD INH SCH ×4 (01:40→19:39)
[2017-03-15 08:21] LABS: BASO % 0.4 % (0.0-2.0); EOS # 0.1 K/uL (0.0-0.7); EOS % 1.7 % (0.0-4.0); HEMATOCRIT 27.4 % (35.0-51.0); MEAN CELL VOLUME 90.8 fL (80.0-94.0); MEAN CORPUSCULAR HEMOGLOBIN 28.7 pg (27.0-31.0); MEAN CORPUSCULAR HGB CONC 31.6 g/dL (33.0-37.0); RED CELL DISTRIBUTION WIDTH 16.7 % (11.5-14.5); WHITE BLOOD COUNT 6.1 K/uL (4.8-10.8)
[2017-03-15 08:54] LABS: CHLORIDE 97 mmol/L (98-107); POTASSIUM 3.1 mmol/L (3.6-5.2); SODIUM 135 mmol/L (132-148)
[2017-03-15 08:56] LABS: BILIRUBIN,TOTAL 0.7 mg/dL (0.2-1.3); GFR AFRICAN-AMERICAN > 60
[2017-03-15 08:57] LABS: ALB/GLOB RATIO 0.9 (1.0-2.1); ALKALINE PHOSPHATASE 60 U/L (38-126); ALT/SGPT 29 U/L (21-72); AST/SGOT 27 U/L (17-59); BLOOD UREA NITROGEN 17 mg/dL (9-20); CARBON DIOXIDE 28 mmol/L (22-30); GLUCOSE,RANDOM 98 mg/dL (75-110); TOTAL PROTEIN 5.5 g/dL (6.3-8.3)
[2017-03-15 08:58] LABS: CALCIUM 7.9 mg/dl (8.6-10.4)
[2017-03-15] MEDS: Potassium Chloride 20 mEq ER Tab PO SCH (12:08)
--- NOTE | 2017-03-15 12:37 | CP.PCM.PN ---
Subjective - Date & Time of Evaluation Date of Evaluation: 03/15/17 Time of Evaluation: 12:35 - Subjective Subjective: weak.frequent pvcs.k is 3.1 Objective - Vital Signs/Intake and Output Vital Signs (last 24 hours): Temp Pulse Resp BP Pulse Ox 98.4 F 82 18 98/52 L 100 03/15/17 08:23 03/15/17 09:40 03/15/17 08:23 03/15/17 09:40 03/15/17 08:23 Intake and Output: 03/15/17 03/15/17 06:59 18:59 Intake Total 320 Output Total 400 Balance -80 - Medications Medications: Current Medications Albuterol/Ipratropium (Duoneb 3 Mg/0.5 Mg (3 Ml) Ud) 3 ml INH RQ6 [facility] Last Admin: 03/15/17 07:30 Dose: 3 ml Ferrous Sulfate (Feosol) 325 mg PO DAILY [facility] Last Admin: 03/15/17 09:41 Dose: 325 mg Furosemide (Lasix) 20 mg PO DAILY [facility] Last Admin: 03/14/17 10:57 Dose: 20 mg Losartan Potassium (Cozaar) 25 mg PO DAILY [facility] Last Admin: 03/15/17 12:06 Dose: 25 mg Metoprolol Succinate (Toprol Xl) 25 mg PO DAILY [facility] Pantoprazole Sodium (Protonix Ec Tab) 40 mg PO DAILY [facility] Potassium Chloride (K-Dur 20 Meq Er Tab) 40 meq PO DAILY [facility] Last Admin: 03/15/17 12:08 Dose: 40 meq Tramadol HCl (Ultram) 50 mg PO TID PRN PRN Reason: Pain, moderate (4-7) Last Admin: 03/15/17 03:50 Dose: 50 mg - Labs Labs: 03/15/17 08:03 03/15/17 08:03 PT 16.0 SECONDS (9.7-12.2) H 03/12/17 07:56 INR 1.4 03/12/17 07:56 - Constitutional Appears: No Acute Distress - Eye Exam Eye Exam: Normal appearance - ENT Exam ENT Exam: Mucous Membranes Moist - Respiratory Exam Respiratory Exam: Clear to Ausculation Bilateral - Cardiovascular Exam Cardiovascular Exam: REGULAR RHYTHM, Murmur - GI/Abdominal Exam GI & Abdominal Exam: Soft - Neurological Exam Neurological Exam: Alert, Oriented x3 Assessment and Plan - Assessment and Plan (Free Text) Assessment: nstemi,chf,gi bleed. will add toprol xl 25 for frequent pvcs,short runs of v tach,3 beats. also correct k. will hold d/c today
--- NOTE | 2017-03-15 14:38 | CP.PCM.PN ---
Subjective - Date & Time of Evaluation Date of Evaluation: 03/15/17 Time of Evaluation: 14:36 - Subjective Subjective: Patient complains of feeling weak. He denies having nausea, vomiting, abdominal pain. His appetite is good. He had one formed bowel movement, normal in color, this morning. Objective - Vital Signs/Intake and Output Vital Signs (last 24 hours): Temp Pulse Resp BP Pulse Ox 98.4 F 82 18 98/52 L 100 03/15/17 08:23 03/15/17 09:40 03/15/17 08:23 03/15/17 09:40 03/15/17 08:23 Intake and Output: 03/15/17 03/15/17 06:59 18:59 Intake Total 320 Output Total 400 Balance -80 - Medications Medications: Current Medications Albuterol/Ipratropium (Duoneb 3 Mg/0.5 Mg (3 Ml) Ud) 3 ml INH RQ6 [facility] Last Admin: 03/15/17 13:06 Dose: 3 ml Ferrous Sulfate (Feosol) 325 mg PO DAILY [facility] Last Admin: 03/15/17 09:41 Dose: 325 mg Furosemide (Lasix) 20 mg PO DAILY [facility] Last Admin: 03/15/17 12:00 Dose: Not Given Losartan Potassium (Cozaar) 25 mg PO DAILY [facility] Last Admin: 03/15/17 12:06 Dose: 25 mg Metoprolol Succinate (Toprol Xl) 25 mg PO DAILY [facility] Pantoprazole Sodium (Protonix Ec Tab) 40 mg PO DAILY [facility] Potassium Chloride (K-Dur 20 Meq Er Tab) 40 meq PO DAILY [facility] Last Admin: 03/15/17 12:08 Dose: 40 meq Tramadol HCl (Ultram) 50 mg PO TID PRN PRN Reason: Pain, moderate (4-7) Last Admin: 03/15/17 03:50 Dose: 50 mg - Labs Labs: 03/15/17 08:03 03/15/17 08:03 PT 16.0 SECONDS (9.7-12.2) H 03/12/17 07:56 INR 1.4 03/12/17 07:56 - Constitutional Appears: No Acute Distress - Head Exam Head Exam: ATRAUMATIC, NORMOCEPHALIC - Eye Exam Eye Exam: EOMI, PERRL - Neck Exam Neck Exam: absent: Lymphadenopathy, Thyromegaly - Respiratory Exam Respiratory Exam: NORMAL BREATHING PATTERN. absent: Rales, Rhonchi, Wheezes - Cardiovascular Exam Cardiovascular Exam: REGULAR RHYTHM, +S1, +S2. absent: Gallop, Rubs, Murmur - GI/Abdominal Exam GI & Abdominal Exam: Soft, Normal Bowel Sounds. absent: Tenderness, Mass, Organomegaly - Rectal Exam Rectal Exam: Deferred - Extremities Exam Extremities Exam: absent: Calf Tenderness, Pedal Edema Assessment and Plan (1) Melena Assessment & Plan: The planned discharge to rehab was postponed owing to hypokalemia and PVCs. Hemoglobin declined slightly to 8.7. The plan remains to schedule EGD and colonoscopy as an outpatient once patient has been cleared for the procedures. Status: Acute
[2017-03-15] MEDS: Metoprolol Succinate 25 mg XL Tab PO SCH (17:48)
[2017-03-16] MEDS: Albuterol-Ipratrop 3 mg / 0.5 (3 ml) UD INH SCH ×3 (01:14→13:02)
[2017-03-16 07:16] LABS: BASO % 0.7 % (0.0-2.0); EOS # 0.1 K/uL (0.0-0.7); EOS % 1.9 % (0.0-4.0); HEMATOCRIT 26.4 % (35.0-51.0); LYMPH % 16.7 % (20.0-40.0); MEAN CELL VOLUME 90.2 fL (80.0-94.0); MEAN CORPUSCULAR HEMOGLOBIN 28.8 pg (27.0-31.0); MEAN CORPUSCULAR HGB CONC 31.9 g/dL (33.0-37.0); MEAN PLATELET VOLUME 10.1 fL (7.2-11.7); MONO # 0.8 K/uL (0.0-0.8); MONO % 14.3 % (0.0-10.0); RED CELL DISTRIBUTION WIDTH 16.6 % (11.5-14.5); WHITE BLOOD COUNT 5.7 K/uL (4.8-10.8)
[2017-03-16 07:20] LABS: CHLORIDE 99 mmol/L (98-107)
[2017-03-16 07:21] LABS: POTASSIUM 3.6 mmol/L (3.6-5.2); SODIUM 136 mmol/L (132-148)
[2017-03-16 07:23] LABS: AST/SGOT 24 U/L (17-59); BILIRUBIN,TOTAL 0.7 mg/dL (0.2-1.3); BLOOD UREA NITROGEN 13 mg/dL (9-20); CARBON DIOXIDE 29 mmol/L (22-30); GFR AFRICAN-AMERICAN > 60; TOTAL PROTEIN 5.7 g/dL (6.3-8.3)
[2017-03-16 07:24] LABS: ALKALINE PHOSPHATASE 58 U/L (38-126); ALT/SGPT 31 U/L (21-72); CALCIUM 8.4 mg/dl (8.6-10.4); GLUCOSE,RANDOM 96 mg/dL (75-110)
[2017-03-16 09:01] LABS: MAGNESIUM 2.1 mg/dL (1.6-2.3)
[2017-03-16] MEDS: Potassium Chloride 20 mEq ER Tab PO SCH (09:48)
[2017-03-16] MEDS: Metoprolol Succinate 25 mg XL Tab PO SCH (09:51)
[2017-03-16] MEDS ORDERED: Pantoprazole 40 mg EC Tab PO SCH (10:00)
--- NOTE | 2017-03-16 12:07 | CP.PCM.PN ---
Subjective - Date & Time of Evaluation Date of Evaluation: 03/16/17 Time of Evaluation: 12:05 - Subjective Subjective: PT SEEN AND EXAMINED TODAY, PT DENIES ANY ABDOMINAL PAIN, CP, SOB, PALPITATIONS , N/V/D, Objective - Vital Signs/Intake and Output Vital Signs (last 24 hours): Temp Pulse Resp BP Pulse Ox 97.8 F 80 18 101/66 97 03/16/17 08:32 03/16/17 11:21 03/16/17 09:47 03/16/17 11:21 03/16/17 09:47 Intake and Output: 03/16/17 03/16/17 06:59 18:59 Intake Total 240 Output Total 350 Balance -110 - Medications Medications: Current Medications Albuterol/Ipratropium (Duoneb 3 Mg/0.5 Mg (3 Ml) Ud) 3 ml INH RQ6 [facility] Last Admin: 03/16/17 07:22 Dose: 3 ml Ferrous Sulfate (Feosol) 325 mg PO DAILY [facility] Last Admin: 03/16/17 09:48 Dose: 325 mg Furosemide (Lasix) 20 mg PO DAILY [facility] Last Admin: 03/16/17 09:52 Dose: Not Given Losartan Potassium (Cozaar) 25 mg PO DAILY [facility] Last Admin: 03/16/17 09:51 Dose: Not Given Metoprolol Succinate (Toprol Xl) 25 mg PO DAILY [facility] Last Admin: 03/16/17 09:51 Dose: Not Given Pantoprazole Sodium (Protonix Ec Tab) 40 mg PO DAILY [facility] Last Admin: 03/16/17 09:48 Dose: 40 mg Potassium Chloride (K-Dur 20 Meq Er Tab) 40 meq PO DAILY [facility] Last Admin: 03/16/17 09:48 Dose: 40 meq Tramadol HCl (Ultram) 50 mg PO TID PRN PRN Reason: Pain, moderate (4-7) Last Admin: 03/15/17 03:50 Dose: 50 mg - Labs Labs: 03/16/17 06:57 03/16/17 06:57 PT 16.0 SECONDS (9.7-12.2) H 03/12/17 07:56 INR 1.4 03/12/17 07:56 Assessment and Plan - Assessment and Plan (Free Text) Plan: PT IS 87 Y/O MALE ADMITTED FOR CHF, NSTEMI PT CLEARED FOR D/C PER DR HUYNH H/H 8.4/26.4, K:3.6, MG 2.1 - LAB DISCUSSED W/DR HUYNH WILL MONITOR CBC, CMP, BP CONTINUE MEDS PER MED REC F/U W/ DR LUDWIG OUPT, COLONSCOPY AND EGD OUTPT
--- NOTE | 2017-03-16 16:24 | CARD ---
APPROVED REPORT EKG Measurement Heart [id number] <Conclusion> Sinus tachycardia with occasional premature ventricular complexes Left ventricular hypertrophy with repolarization abnormality Abnormal ECG
--- NOTE | 2017-03-16 17:11 | PCM.HF ---
Heart Failure Core Measure - Heart Failure Ejection Fraction: Less Than 40 % MATTHEW Inhibitor Prescribed: No Contraindication/Reason for not providing: ON ARB Beta-Da Prescribed: Metoprolol Succinate Angiotensin II Receptor Da Prescribed: Yes AnticoagulationTherapy for Atrial Fibrillation/Atrialflutter: No Contraindication/Reason for not providing: GI BLEED Aldosterone Antagonist Prescribed: No Contraindication/Reason for not providing: HELD BY ENGINEERING PROGRAM MANAGER; PT NONCOMPLIANT W ORAL MEDS; HAS ICD Hydralazine Nitrate Prescribed: No Contraindication/Reason for not providing: HELD BY ENGINEERING PROGRAM MANAGER; PT NONCOMPLIANT W ORAL MEDS; HAS ICD Implantable Cardioverter Defibrillator Therapy: Yes Cardiac Resynchronization Therapy Prescribed: No Contraindication/Reason for not providing: HELD BY ENGINEERING PROGRAM MANAGER; PT NONCOMPLIANT W ORAL MEDS; HAS ICD - Follow up Will be discharged to: Alf Facility ([facility]) Follow Up Date (must be within 7 days from discharge): 03/19/17 Follow Up Time: 09:00
[2017-03-16 17:21] VITALS: BP 118/66; PULSE 80; RESP 20; TEMP 97.6; O2SAT 100
--- NOTE | 2017-03-17 12:56 | DS ---
HISTORY OF PRESENT ILLNESS: This is an 87-year-old gentleman was admitted on 03/10/2017. The patient is being transferred today on 03/16/2017 to rehab. The patient came with poor appetite, GI bleed. Endoscopy done, which showed small ulcer and gastritis. The patient was seen and followup by Dr. Lr. IV Protonix were given. One unit of blood transfusion was given. His EKG showed a sinus tachycardia, nonspecific ST-T changes. The patient has a history of CAD, previous CABG. He has refused all the medicines in the past. He was taking a lot of pain medications for pain management. Hemoglobin was 7 g. Subsequently, repeat one has been 9 g, currently is 8.5 g. His small runs of V-tach were noted, which has been corrected by a correcting potassium. He was placed on beta bobby. Echocardiogram showed LVEF of 30%, moderate degree of MR. The patient was placed on a beta bobby, metoprolol succinate 25 and Cozaar 25 mg. He is not an aspirin or Plavix or other blood thinners because of GI bleed. He was placed on Zocor. Repeat CBC and chemistry will be followed up because the patient is on Lasix and potassium. Today's potassium is 3.6, his magnesium is normal. Care of plan was explained to the patient's family, [id number] and son. The patient is DNR and DNI. FINAL DIAGNOSES: Gastrointestinal bleed, peptic ulcer disease, non-ST elevation myocardial infarction, left ventricular systolic dysfunction, moderate degree of mitral regurgitation, coronary artery disease status post coronary artery bypass grafting, multiple joint pains, arthritis, and back problems. Tai Whitley MD
--- NOTE | 2017-03-19 10:40 | PQF CHF ---
This form is a permanent part of the medical record Clarification of your documentation is requested to better reflect the severity of illness and intensity of treatment of your patient. PLEASE CLARIFY AND DOCUMENT -- THE TYPE OF 'CHF' Indicators present [X] Diagnosis of CHF and/or history of CHF [XX] BNP > 200----03/1036=9939----8/69=[id number] [] Imaging Finding of Pulmonary Edema /Pleural Effusions [] Fluid/Volume Overload [] Pitting edema [XX] Ejection Fraction < 40% (Indicative of Systolic Heart Failure)--03/11=ECHO= 20-25% [] Ejection Fraction > 40% (Indicative of Diastolic Heart Failure) [] Dyspnea / Orthopenea / Paroxysmal Nocturnal Dyspnea [] Other: Location in the medical record that reflects the above clinical findings: [] Treatment Provided: [X LAXIS 20 MG PO] PHYSICIAN'S RESPONSE Based on your medical judgment of the clinical indicators outlined above, are you treating this patient for a known or suspected: [] Acute CHF [] Systolic [] Diastolic [] Combined [] Chronic CHF [] Systolic [] Diastolic [] Combined [] Acute on Chronic CHF []Systolic [] Diastolic [] Combined [] CHF due hypertension [] Acute systolic []Chronic systolic [] Acute/ chronic systolic [] Other, please indicate: [] [] If Unable to Determine, please check the box, sign and date. Present On Admission (POA) Indicator: [] Present at the time of admission [] Not present at the time of admission [] Clinically Undetermined In responding to this query, please exercise your independent professional judgment. The fact that a question is asked does not imply that any particular answer is desired or expected. Thank you for your clarification on this documentation. If you have any questions please call:[ ] * Thank you, [ MAN NELSON] nurse anesthetist MARYAM
--- NOTE | 2017-03-19 10:47 | PQF CHF ---
This form is a permanent part of the medical record Clarification of your documentation is requested to better reflect the severity of illness and intensity of treatment of your patient. PLEASE CLARIFY AND DOCUMENT -- THE TYPE OF 'CHF' Indicators present [X] Diagnosis of CHF and/or history of CHF [XX] BNP > 200----03/1016=3539----8/33=[id number] [] Imaging Finding of Pulmonary Edema /Pleural Effusions [] Fluid/Volume Overload [] Pitting edema [XX] Ejection Fraction < 40% (Indicative of Systolic Heart Failure)--03/11=ECHO= 20-25% [] Ejection Fraction > 40% (Indicative of Diastolic Heart Failure) [] Dyspnea / Orthopenea / Paroxysmal Nocturnal Dyspnea [] Other: Location in the medical record that reflects the above clinical findings: [] Treatment Provided: [X LAXIS 20 MG PO] PHYSICIAN'S RESPONSE Based on your medical judgment of the clinical indicators outlined above, are you treating this patient for a known or suspected: [] Acute CHF [] Systolic [] Diastolic [] Combined [] Chronic CHF [] Systolic [] Diastolic [] Combined [] Acute on Chronic CHF []Systolic [] Diastolic [] Combined [] CHF due hypertension [] Acute systolic []Chronic systolic [] Acute/ chronic systolic [] Other, please indicate: [] [] If Unable to Determine, please check the box, sign and date. Present On Admission (POA) Indicator: [] Present at the time of admission [] Not present at the time of admission [] Clinically Undetermined In responding to this query, please exercise your independent professional judgment. The fact that a question is asked does not imply that any particular answer is desired or expected. Thank you for your clarification on this documentation. If you have any questions please call:[ ] * Thank you, [ MAN NELSON] explosive ordnance disposal technician
--- NOTE | 2017-03-20 20:10 | CARD ---
APPROVED REPORT EKG Measurement Heart [id number] <Conclusion> Normal sinus rhythm Left ventricular hypertrophy with repolarization abnormality Prolonged QT Abnormal ECG
== END 2017-03-16 18:01 | DRG 280 ==
LOC: C.ER 07:45 → C.9E 09:02 → C.6T 19:23
PROVIDERS: ADMIT Internal Medicine Cardiovascular Disease; ATTEND Internal Medicine Cardiovascular Disease
DX: I21.4 Non-ST elevation (NSTEMI) myocardial infarction (principal); I50.43 Acute on chronic combined systolic (congestive) and diastolic (congestive) heart failure; I47.2 Ventricular tachycardia; Z68.1 Body mass index [BMI] 19.9 or less, adult; I48.91 Unspecified atrial fibrillation; J44.9 Chronic obstructive pulmonary disease, unspecified; D63.8 Anemia in other chronic diseases classified elsewhere; I34.0 Nonrheumatic mitral (valve) insufficiency; I25.10 Atherosclerotic heart disease of native coronary artery without angina pectoris; K08.89 Other specified disorders of teeth and supporting structures; K22.2 Esophageal obstruction; K27.9 Peptic ulcer, site unspecified, unspecified as acute or chronic, without hemorrhage or perforation; K29.70 Gastritis, unspecified, without bleeding; K59.00 Constipation, unspecified; N40.0 Benign prostatic hyperplasia without lower urinary tract symptoms; Z66 Do not resuscitate; Z87.891 Personal history of nicotine dependence; Z95.1 Presence of aortocoronary bypass graft; Z95.810 Presence of automatic (implantable) cardiac defibrillator; E87.6 Hypokalemia